=== PATIENT | female | born 1930 | race Caucasian/White ===

== ENCOUNTER → 2016-04-29 | Outpatient (CLI) | payer OTHER ==
[~2016-04-29] MED LIST: ADULT LOW DOSE81 MG PO; ASA81BEC PO; AUGMENTIN 875875 MG PO; BENADRYL25 MG PO; COLACE100 MG PO; DILTIAZEM 24HR240 M2 PO; DONNATAL E16.2 MG/1 PO; EVISTA PO; FLOXIN OTI0.3 %/5 M1 OPHTHALMIC; GABAPENTIN 100100 MG PO; ILEVRO1.7 ML OPHTHALMIC; LACTINEX CHEWA1 EACH PO; LOTEMAX5 ML OPHTHALMIC; MECLIZINE HCL25 M1 PO; MICARDIS HCT 81 EACH PO; MITIGARE0.6 MG PO; NEXIUM 24HR20 MG PO; NORCO 5-325 TA1 EACH PO; PRAVACHOL40 MG PO; PREDNISONE 2.52.5 M1 PO; PREDNISONE 5 MG5 M1 PO; PREVACID30 MG PO; PROVENTIL HFA6.7 G1 INH; TOPROL XL25 MG PO; ZOFRAN ODT4 MG PO
[2016-04-29 10:10] LABS: CALCIUM 9.2 mg/dL (8.5-10.1); CREATININE 1.4 mg/dL (0.6-1.3); POTASSIUM 4.1 mmol/L (3.5-5.1)
== END ==
LOC: CAT 08:38
PROVIDERS: Nuclear Medicine Nuclear Cardiology
DX: I87.2 Venous insufficiency (chronic) (peripheral) (principal)